=== PATIENT | male | born 1985 | race Caucasian/White ===

== ENCOUNTER 2018-02-02 07:50 | Inpatient (IN) | payer MEDICAID, OTHER ==
[~2018-02-02] VITALS: Ht 170.2 cm; Wt 76.7 kg
[2018-02-02] MEDS ORDERED: FAMOTIDINE 20MG TABLET PO ONE (08:30)
[2018-02-02] MEDS ORDERED: SODIUM CHLORIDE 0.9% 1,000 ML IV ONE ×2 (09:40→11:40)
[2018-02-02 10:27] LABS: BASOPHILS % 0.5 % (0.0-2.0); EOSINOPHILS % 0.7 % (0.0-5.0); HEMATOCRIT. 50.1 % (42.0-52.0); HEMOGLOBIN. 17.4 g/dL (14.0-18.0); LYMPHOCYTES % 18.8 % (20.0-50.0); MEAN CORPUSCULAR HEMOGLOBIN 32.4 pg (28.0-32.0); MEAN CORPUSCULAR VOLUME 93.2 fL (80.0-94.0); MEAN PLATELET VOLUME 7.1 fl (7.4-10.4); MONOCYTES % 7.8 % (2.0-8.0); NEUTROPHILS % 72.2 % (40.0-76.0); PLATELET 231 x1000/uL (130-400); RED BLOOD CELL COUNT 5.38 mill/uL (4.7-6.1); RED CELL DISTRIBUTION WIDTH 13.3 % (11.6-14.6)
[2018-02-02 10:33] LABS: CHLORIDE 101 mEq/L (98-107)
[2018-02-02 10:35] LABS: PARTIAL THROMBOPLASTIN TIME 27.1 sec (23.4-31.0); PROTHROMBIN TIME 10.7 sec (9.4-11.6)
[2018-02-02] MEDS ORDERED: LIDOCAINE HCL/PF 1% 10 MG/ML 5ML VIAL ONE (11:13)
[2018-02-02] MEDS ORDERED: SODIUM BICARBONATE 4% (2.4MEQ) 5ML VIAL IV ONE (11:13)
[2018-02-02] MEDS ORDERED: MORPHINE SULFATE 10 MG/ML CPJ IV ONE ×2 (11:45→13:15)
[2018-02-02] MEDS ORDERED: ONDANSETRON HCL 4MG/2ML VIAL IV ONE ×2 (11:45→13:15)
[2018-02-02 15:04] VITALS: BP 116/77
[2018-02-02 16:00] VITALS: BP 126/81
[2018-02-02] MEDS ORDERED: ACETAMINOPHEN 650MG SUPP PR PRN (16:45)
[2018-02-02] MEDS ORDERED: ACETAMINOPHEN 325MG TABLET PO PRN (16:45)
[2018-02-02] MEDS ORDERED: HYDROCODONE/ACETAMINOPHEN 5/325MG TABLET PO PRN ×2 (16:45)
[2018-02-02] MEDS ORDERED: CLONIDINE 0.1MG TABLET PO PRN (16:45)
[2018-02-02] MEDS ORDERED: GUAIFENESIN 200MG/10ML SUGAR FREE UDC PO PRN (16:45)
[2018-02-02] MEDS ORDERED: HYDROCODONE/ACETAMINOPHEN 10/325MG TABLET PO PRN (16:45)
[2018-02-02] MEDS ORDERED: ONDANSETRON HCL 4MG/2ML VIAL IV PRN (16:45)
[2018-02-02] MEDS ORDERED: DOCUSATE SODIUM 100MG CAPSULE PO PRN (16:45)
[2018-02-02] MEDS ORDERED: NA PHOS,M-B/NA PHOS,DI-BA ENEMA 118ML PR PRN (16:45)
[2018-02-02] MEDS ORDERED: IPRATROPIUM/ALBUTEROL 0.5-3(2.5)MG/3ML NEB INH PRN (16:45)
[2018-02-02] MEDS ORDERED: MAGNESIUM/ALUMINUM HYDROXIDE/SIMETHICONE 30ML UDC PO PRN (16:45)
[2018-02-02] MEDS ORDERED: LORAZEPAM 2MG/ML CPJ IV PRN (17:00)
[2018-02-02 17:38] LABS: HEPATITIS B SURFACE ANTIGEN NEGATIVE
[2018-02-02] MEDS ORDERED: THIAMINE HCL 100MG TABLET PO NR (18:00)
[2018-02-02 18:06] LABS: HEPATITIS B CORE AB IGM NEGATIVE
[2018-02-02 18:08] LABS: HEPATITIS A AB IGM NEGATIVE (NEGATIVE)
[2018-02-02] MEDS: MORPHINE SULFATE 4 MG/ML CPJ (NOT FOR IM USE) IV PRN ×2 (18:35→23:55)
[2018-02-02] MEDS: ENOXAPARIN 40MG/0.4ML SYR SUBCUT SCH (18:36)
[2018-02-02] MEDS ORDERED: NICOTINE 21MG PATCH TD NR (19:00)
[2018-02-02] MEDS ORDERED: ESOM40CA PO (19:08)
[2018-02-02 20:00] VITALS: BP 111/66
[2018-02-02] MEDS: IPRATROPIUM/ALBUTEROL 0.5-3(2.5)MG/3ML NEB INH SCH (20:39)
[2018-02-02] MEDS: RISPERIDONE 0.5MG TABLET PO SCH (21:00)
[2018-02-02] MEDS: CHLORDIAZEPOXIDE 5 MG CAPSULE PO SCH ×2 (21:00→21:08)
[2018-02-02] MEDS: SODIUM CHLORIDE 0.9% INJ 3ML FLUSH IVF SCH (21:02)
[2018-02-02] MEDS: AMLODIPINE 5MG TABLET PO SCH (22:00)
[2018-02-03] VITALS: BP 115/58
[2018-02-03 01:57] LABS: CLARITY URINE CLEAR (CLEAR); COLOR URINE DARK YELLOW (YELLOW); KETONES URINE TRACE (NEGATIVE); LEUKOCYTE ESTERASE URINE TRACE (NEGATIVE); NITRITE URINE NEGATIVE (NEGATIVE); OCCULT BLOOD URINE 3+ (NEGATIVE); PROTEIN URINE 2+ (NEGATIVE); SPECIFIC GRAVITY URINE 1.026 (1.005-1.030)
[2018-02-03 02:22] LABS: *AMPHETAMINES SCREEN URINE NEGATIVE (NEGATIVE); *BARBITURATES SCREEN URINE NEGATIVE (NEGATIVE); *BENZODIAZEPINES SCREEN URINE NEGATIVE (NEGATIVE)
[2018-02-03 02:23] LABS: *COCAINE SCREEN URINE NEGATIVE (NEGATIVE); CANNABINOID URINE SCREEN NEGATIVE (NEGATIVE); METHADONE URINE SCREEN NEGATIVE (NEGATIVE); OPIATES URINE SCREEN PRESUMTIVE POSITIVE (NEGATIVE); PHENCYCLIDINE URINE SCREEN NEGATIVE (NEGATIVE)
[2018-02-03] MEDS: IPRATROPIUM/ALBUTEROL 0.5-3(2.5)MG/3ML NEB INH SCH ×4 (02:48→21:03)
[2018-02-03 04:00] VITALS: BP 97/63
[2018-02-03] MEDS: OMEPRAZOLE 20MG CAPSULE EXTENDED RELEASE PO SCH (05:49)
[2018-02-03] MEDS: MORPHINE SULFATE 4 MG/ML CPJ (NOT FOR IM USE) IV PRN ×4 (05:50→21:22)
[2018-02-03] MEDS: SODIUM CHLORIDE 0.9% INJ 3ML FLUSH IVF SCH ×3 (05:53→21:22)
[2018-02-03] MEDS: CHLORDIAZEPOXIDE 5 MG CAPSULE PO SCH ×3 (05:54→21:29)
[2018-02-03 06:55] LABS: BASOPHILS % 0.3 % (0.0-2.0); EOSINOPHILS % 1.4 % (0.0-5.0); HEMATOCRIT. 47.4 % (42.0-52.0); HEMOGLOBIN. 16.2 g/dL (14.0-18.0); LYMPHOCYTES % 23.5 % (20.0-50.0); MEAN CORPUSCULAR HEMOGLOBIN 32.1 pg (28.0-32.0); MEAN CORPUSCULAR VOLUME 93.7 fL (80.0-94.0); MEAN PLATELET VOLUME 7.3 fl (7.4-10.4); MONOCYTES % 9.2 % (2.0-8.0); NEUTROPHILS % 65.6 % (40.0-76.0); PLATELET 198 x1000/uL (130-400); RED BLOOD CELL COUNT 5.06 mill/uL (4.7-6.1); RED CELL DISTRIBUTION WIDTH 13.1 % (11.6-14.6)
[2018-02-03 07:54] LABS: CHLORIDE 100 mEq/L (98-107)
[2018-02-03 08:00] VITALS: BP 112/69
[2018-02-03 08:12] LABS: LDL CHOLESTEROL 169 mg/dL (5-100)
[2018-02-03 08:14] LABS: HDL CHOLESTEROL 41 mg/dL (40-59)
[2018-02-03] MEDS: THIAMINE HCL 100MG TABLET PO SCH (09:17)
[2018-02-03] MEDS: FOLIC ACID 1MG TABLET PO SCH (09:17)
[2018-02-03] MEDS: AMLODIPINE 5MG TABLET PO SCH (09:18)
[2018-02-03] MEDS: MULTIVITAMINS,THER W-MINERALS TABLET PO SCH (09:18)
[2018-02-03] MEDS: NICOTINE 21MG PATCH TD SCH (09:19)
[2018-02-03 12:00] VITALS: BP 107/68
[2018-02-03 16:00] VITALS: BP 111/67
[2018-02-03] MEDS: ENOXAPARIN 40MG/0.4ML SYR SUBCUT SCH (19:59)
[2018-02-03 20:00] VITALS: BP 103/63
[2018-02-03] MEDS: RISPERIDONE 0.5MG TABLET PO SCH (20:03)
[2018-02-03] MEDS: ATORVASTATIN CALCIUM 10MG TABLET PO SCH (20:03)
[2018-02-03] MEDS: DIPHENHYDRAMINE 50MG/ML VIAL IV PRN (23:14)
[2018-02-04] VITALS: BP 102/58
[2018-02-04] MEDS: IPRATROPIUM/ALBUTEROL 0.5-3(2.5)MG/3ML NEB INH SCH ×4 (01:25→21:35)
[2018-02-04 04:00] VITALS: BP 100/61
[2018-02-04] MEDS: OMEPRAZOLE 20MG CAPSULE EXTENDED RELEASE PO SCH (05:50)
[2018-02-04] MEDS: SODIUM CHLORIDE 0.9% INJ 3ML FLUSH IVF SCH ×3 (05:52→21:50)
[2018-02-04] MEDS: CHLORDIAZEPOXIDE 5 MG CAPSULE PO SCH ×3 (05:52→21:51)
[2018-02-04 08:00] VITALS: BP 110/62
[2018-02-04] MEDS: NICOTINE 21MG PATCH TD SCH (09:00)
[2018-02-04] MEDS: AMLODIPINE 5MG TABLET PO SCH (09:00)
[2018-02-04] MEDS: FOLIC ACID 1MG TABLET PO SCH (09:11)
[2018-02-04] MEDS: THIAMINE HCL 100MG TABLET PO SCH (09:11)
[2018-02-04] MEDS: MULTIVITAMINS,THER W-MINERALS TABLET PO SCH (09:11)
[2018-02-04] MEDS: MORPHINE SULFATE 4 MG/ML CPJ (NOT FOR IM USE) IV PRN ×3 (09:12→20:48)
[2018-02-04 12:00] VITALS: BP 115/66
[2018-02-04 16:00] VITALS: BP 129/70
[2018-02-04] MEDS: ENOXAPARIN 40MG/0.4ML SYR SUBCUT SCH (18:26)
[2018-02-04 20:00] VITALS: BP 122/75
[2018-02-04] MEDS: RISPERIDONE 0.5MG TABLET PO SCH (20:43)
[2018-02-04] MEDS: ATORVASTATIN CALCIUM 10MG TABLET PO SCH (20:43)
[2018-02-04] MEDS: DIPHENHYDRAMINE 50MG/ML VIAL IV PRN (21:50)
[2018-02-05] VITALS: BP 110/62
[2018-02-05 04:17] VITALS: BP 112/73
[2018-02-05] MEDS: CHLORDIAZEPOXIDE 5 MG CAPSULE PO SCH ×2 (06:00→12:54)
[2018-02-05] MEDS: OMEPRAZOLE 20MG CAPSULE EXTENDED RELEASE PO SCH (06:22)
[2018-02-05] MEDS: SODIUM CHLORIDE 0.9% INJ 3ML FLUSH IVF SCH ×3 (06:22→21:35)
[2018-02-05] MEDS: MORPHINE SULFATE 4 MG/ML CPJ (NOT FOR IM USE) IV PRN ×3 (06:46→22:11)
[2018-02-05] MEDS ORDERED: LIDOCAINE HCL/PF 1% 10 MG/ML 5ML VIAL ONE ×2 (07:34→08:06)
[2018-02-05] MEDS ORDERED: SODIUM BICARBONATE 4% (2.4MEQ) 5ML VIAL IV ONE (07:35)
[2018-02-05 08:00] VITALS: BP 92/50
[2018-02-05] MEDS ORDERED: HYDROCODONE/ACETAMINOPHEN 5/325MG TABLET PO PRN ×2 (08:15)
[2018-02-05] MEDS: AMLODIPINE 5MG TABLET PO SCH (09:00)
[2018-02-05] MEDS ORDERED: MORPHINE SULFATE 4 MG/ML CPJ (NOT FOR IM USE) IV NR (09:02)
[2018-02-05] MEDS: IPRATROPIUM/ALBUTEROL 0.5-3(2.5)MG/3ML NEB INH SCH ×4 (09:48→19:58)
[2018-02-05] MEDS: THIAMINE HCL 100MG TABLET PO SCH (10:25)
[2018-02-05] MEDS: MULTIVITAMINS,THER W-MINERALS TABLET PO SCH (10:25)
[2018-02-05] MEDS: FOLIC ACID 1MG TABLET PO SCH (10:25)
[2018-02-05] MEDS: NICOTINE 21MG PATCH TD SCH (10:26)
[2018-02-05 12:00] VITALS: BP 101/69
[2018-02-05 16:00] VITALS: BP 99/57
[2018-02-05] MEDS: ENOXAPARIN 40MG/0.4ML SYR SUBCUT SCH (16:03)
[2018-02-05 20:00] VITALS: BP 114/77
[2018-02-05 20:19] LABS: BASOPHILS % 0.4 % (0.0-2.0); EOSINOPHILS % 1.5 % (0.0-5.0); HEMATOCRIT. 46.5 % (42.0-52.0); HEMOGLOBIN. 16.2 g/dL (14.0-18.0); LYMPHOCYTES % 20.4 % (20.0-50.0); MEAN CORPUSCULAR HEMOGLOBIN 32.6 pg (28.0-32.0); MEAN CORPUSCULAR VOLUME 93.4 fL (80.0-94.0); MEAN PLATELET VOLUME 7.6 fl (7.4-10.4); NEUTROPHILS % 69.7 % (40.0-76.0); PLATELET 215 x1000/uL (130-400); RED BLOOD CELL COUNT 4.98 mill/uL (4.7-6.1); RED CELL DISTRIBUTION WIDTH 13.1 % (11.6-14.6)
[2018-02-05 20:28] LABS: CHLORIDE 104 mEq/L (98-107)
[2018-02-05] MEDS: RISPERIDONE 0.5MG TABLET PO SCH (21:00)
[2018-02-05] MEDS: ATORVASTATIN CALCIUM 10MG TABLET PO SCH (21:35)
[2018-02-05] MEDS: DIPHENHYDRAMINE 50MG/ML VIAL IV PRN (23:35)
[2018-02-06] VITALS (7 sets, daily range): BP systolic 101–134; BP diastolic 64–86
[2018-02-06] MEDS: IPRATROPIUM/ALBUTEROL 0.5-3(2.5)MG/3ML NEB INH SCH ×3 (03:05→14:05)
[2018-02-06 05:59] LABS: BASOPHILS % 0.5 % (0.0-2.0); EOSINOPHILS % 1.8 % (0.0-5.0); HEMATOCRIT. 46.1 % (42.0-52.0); HEMOGLOBIN. 15.9 g/dL (14.0-18.0); LYMPHOCYTES % 22.4 % (20.0-50.0); MEAN CORPUSCULAR HEMOGLOBIN 32.4 pg (28.0-32.0); MEAN PLATELET VOLUME 7.7 fl (7.4-10.4); NEUTROPHILS % 65.3 % (40.0-76.0); PLATELET 202 x1000/uL (130-400); RED CELL DISTRIBUTION WIDTH 12.9 % (11.6-14.6)
[2018-02-06] MEDS: SODIUM CHLORIDE 0.9% INJ 3ML FLUSH IVF SCH ×2 (06:10→14:17)
[2018-02-06] MEDS: MORPHINE SULFATE 4 MG/ML CPJ (NOT FOR IM USE) IV PRN ×3 (06:10→19:55)
[2018-02-06] MEDS: OMEPRAZOLE 20MG CAPSULE EXTENDED RELEASE PO SCH (06:10)
[2018-02-06 06:51] LABS: CHLORIDE 102 mEq/L (98-107)
[2018-02-06] MEDS: THIAMINE HCL 100MG TABLET PO SCH (08:29)
[2018-02-06] MEDS: MULTIVITAMINS,THER W-MINERALS TABLET PO SCH (08:29)
[2018-02-06] MEDS: AMLODIPINE 5MG TABLET PO SCH (08:29)
[2018-02-06] MEDS: NICOTINE 21MG PATCH TD SCH (08:30)
[2018-02-06] MEDS: FOLIC ACID 1MG TABLET PO SCH (08:30)
[2018-02-06] MEDS: ENOXAPARIN 40MG/0.4ML SYR SUBCUT SCH (18:00)
== END 2018-02-06 20:20 | disposition short-term general hospital (02) | DRG 199 ==
LOC: ER 08:20 → 5WST 10:45 → ENRESERV 13:39
PROVIDERS: ADMIT Family Medicine; ATTEND Family Medicine
DX: J93.83 Other pneumothorax (principal); J96.00 Acute respiratory failure, unspecified whether with hypoxia or hypercapnia; J44.9 Chronic obstructive pulmonary disease, unspecified; F19.10 Other psychoactive substance abuse, uncomplicated; F10.10 Alcohol abuse, uncomplicated; F17.210 Nicotine dependence, cigarettes, uncomplicated; F41.0 Panic disorder [episodic paroxysmal anxiety]; K21.9 Gastro-esophageal reflux disease without esophagitis; Z91.5 Personal history of self-harm; Z79.899 Other long term (current) drug therapy; Z79.1 Long term (current) use of non-steroidal anti-inflammatories (NSAID)
CPT/HCPCS: 36415; 71045; 71250; 80048; 80053; 80061; 80076; 80305; 81003; 85025; 85610; 85730; 86705; 86709; 86803; 87340; 93005; 94640; 96361; 96374; 96375; 99291; G0482; J1200; J1650; J2270; J2405; J3490; J7030; J7620